=== PATIENT | male | born 1985 | race Caucasian/White ===

== ENCOUNTER → 2016-06-13 | Outpatient (CLI) | payer MEDICAID ==
[~2016-06-13] MED LIST: CEPH500T PO; HYDR-3702 PO; HYDR-3754 PO; IBUP200C PO; METH4TAB27 PO; MUPI22OI TP; NAPR550T PO; NO HOME MEDICATIONS; SULF-228 PO; TRAM-25 PO
[2016-06-13 14:49] VITALS: BP 125/85
--- NOTE | 2016-06-13 14:49 | Urgent Care T Sheet Gen (E) ---
Intake General Temperature (Fahrenheit): 97.9 Pulse: 91 Blood Pressure Systolic: 125 Blood Pressure Diastolic: 85 Respirations: 18 SPO2: 97 Description of Symptoms Patient presents with 2 complaints: First, he needs a work note since he was sick for the past few days. patient states he had n/v/d for the past 2 days. He last vomited at 2am. Feels fine now. Just needs a note so he can go back to work. Next, patient states he has a nail fungus which won't go away. States it affects his R great toe, L 2nd finger and R 5th finger. Been using OTC topical treatments without improvement. Patient denies any history of liver disease. States he doesn't drink. History of Present Illness Allergies: Coded Allergies: No Known Allergies (Verified Allergy, 02/27/12) Home Meds Reported Medications Ibuprofen 200 Mg [id number] Mg PO NEEDED 03/25/15 Respiratory Constitutional Symptoms: No syptoms reported EENTM: No symptoms reported Respiratory: No symptoms reported Cardiovascular: No symptoms reported Gastrointestinal/Abdominal: Diarrhea Nausea Vomiting Skin: Other (nail fungus) All Other Systems Reviewed Remaining Systems: All other systems reviewed with negative findings Past Yessoek-Zpeoao-Kjestm Hx Patient's Social History Infectious Disease Exposure: Yes Recent foreign travel: No Surgeries/Hospitalizations Hospitalization/Surgery Hx: Nose surgery, Respiratory Respiratory History: None Cardiovascular Cardiovascular History: None Neuro/Muscular Neuro/Muscular History: None Reproductive System Sexually Transmitted Diseases: No Genitouinary Genitourinary History: None Gastrointestinal GI/Endocrine History: None Diabetes Diabetes: No HEENT Impaired Vision: None Hearing Impaired: None Integumentary Integumentary History: None Cancer History of Cancer?: No Psychosocial Behavior Disorders: None Blood Transfusions Hx of Blood transfusions: No Physical Exam Physical Exam General Appearance: WD/WN No apparent distress Eyes, Ears, Nose, Throat Ex: TMs normal Pharynx normal Neck Exam: SuppleNo Lymphadenopathy Respiratory Exam: Lungs clear Normal breath sounds Cardiovascular Exam: Regular rate, rhythm GI/ Exam: Non tender Normal bowel sounds No distention Skin Exam: Other (nail fungus noted along the R great toe, L 2nd finger and R 5th finger. nails are pitted and discolored.) Departure Urgent Care Impression Impression: Primary Impression: Gastroenteritis Additional Impression: Onychomycosis Departure Disposition: HOME OR SELF-CARE Condition: Stable Referrals: TASHA THOMAS MD (PCP) Additional Instructions: Note was given for the gastroenteritis which appears to have cleared. I have started the patient on Lamisil 250mg daily x 45 days for treatment of his fungal nails. No alcohol while taking. F/U with PCP once done. If no better, may need derm referral. Patient understands DC instructions. All questions were answered. End of report . VIKASH CALDWELL Jun 13, 2016 14:49
== END ==
LOC: MHUC 14:28
PROVIDERS: ATTEND Physician Assistant
DX: K52.9 Noninfective gastroenteritis and colitis, unspecified (principal); B35.1 Tinea unguium
CPT/HCPCS: 99213

== ENCOUNTER → 2016-07-23 | Outpatient (CLI) | payer MEDICAID ==
[2016-07-23 17:29] VITALS: BP 137/87
== END ==
LOC: MHUC 10:10
PROVIDERS: ATTEND Physician Assistant
DX: J00 Acute nasopharyngitis [common cold] (principal); B35.1 Tinea unguium
CPT/HCPCS: 99213

== ENCOUNTER 2016-09-25 14:15 | Emergency (ER) | payer MEDICAID ==
[~2016-09-25] VITALS: Ht 172.7 cm; Wt 108.8 kg
--- OUTSIDE RECORDS SUMMARY | 2016-09-25 14:23 | XMS REPORT ---
Author Author GENERATED, SYSTEM Organization Unknown Address Unknown Phone Unavailable Care Team Providers Care Management Liaison Name Role Phone UNASSIGNED DOCTOR , DOCTOR PP [phone] Reason For Visit Chief Complaint ACUTE CHOLECYSTITIS,HEPATOBILIARY SCAN W/ Social History Functional Status Vital Signs Results Problems Encounter Diagnosis No relevant problems exist. Additional Problems Cellulitis of Leg Comment:Problem resolved by [facility] Workflow upon Discharge, Status:Resolved. Encounters Encounter Diagnosis No relevant problems exist. Plan of Care Procedures Completed Procedure Code: 81.91 Procedure Name: not valued, on 09/05/2013 12:00 AMCompleted Procedure Code: 88.79 Procedure Name: not valued, on 09/05/2013 12: 00 AM Immunizations No immunizations administered or ordered. Hospital Course Hospital Discharge Instructions Allergies, Adverse Reactions, Alerts Latex Allergy has not been assessed.IV Contrast Allergy has not been assessed.No Known Drug Allergies.No Known Food Allergies.No Known Allergies. Medication Medication reconciliation has not been performed.
[2016-09-25] MEDS ORDERED: HYDR-33 PO (15:06)
[2016-09-25 15:17] VITALS: BP 161/83
--- NOTE | 2016-09-25 15:27 | Diagnostic Imaging Report ---
INDICATION: Trauma with pain. FINDINGS: There is a slightly comminuted fracture involving the midshaft of the fifth metatarsal. There does appear to be some callus formation associated with this suggesting a stress fracture or refracturing. The remaining metatarsals appear normal. The metatarsal/tarsal joints are normal. The MP joints are normal. IMPRESSION: Mildly comminuted fracture of the midshaft of the fifth metatarsal. Associated callus formation and sclerosis suggest this represents either a fracture through a chronic stress fracture or recurrent fracture. Dictated by: Dictated on workstation # [id number]
== END 2016-09-25 15:15 | disposition home or self-care (01) ==
LOC: EDUNIT# 14:15 → ED 14:18
DX: M84.474A Pathological fracture, right foot, initial encounter for fracture (principal); Y93.01 Activity, walking, marching and hiking; Y92.410 Unspecified street and highway as the place of occurrence of the external cause
CPT/HCPCS: 99282; 99283